=== PATIENT | male | born 1960 | race Caucasian/White ===

== ENCOUNTER 2023-02-18 06:50 | Day surgery (SDC) | payer OTHER ==
[2023-02-10 16:34] VITALS: BP 136/84
[~2023-02-18] VITALS: Ht 177.8 cm; Wt 140.9 kg
[~2023-02-18 06:50] MED LIST: DULOXETINE HCL30 MG PO; GLIMEPIRIDE4 MG PO; LOSARTAN-HCTZ1 EAC1 PO; MAGNESIUM400 MG PO; METFORMIN HCL500 MG PO; TAMSULOSIN HCL0.4 MG PO; ZOCOR20 MG PO
[2023-02-18 07:24] VITALS: BP 128/82
--- NOTE | 2023-02-18 09:47 | NUR ---
02/18/23 0947 Arlyn Orozco 0938 PT ARRIVED TO PACU. SLEEPING WITH ORAL AIRWAY IN PLACE. SAO2 98% ON 6L. PT PASSING GAS IN HIS SLEEP.
[2023-02-18 10:09] VITALS: BP 155/87
--- NOTE | 2023-02-20 20:51 | OR ---
[facility] [address], [place] [address] Signed DATE OF OPERATION: 02/18/2023 SURGEON: Kareem Horowitz MD PREOPERATIVE DIAGNOSES: 1. Personal history of colonic polyps in 2012 at age 51. 2. 4 mm polyp at 25 cm in distal sigmoid colon. 3. Minimal shallow sigmoid diverticulosis. 4. Minimal internal hemorrhoids. PROCEDURE: Colonoscopy with hot biopsy. ESTIMATED BLOOD LOSS: None. INDICATIONS: Kelly is a 63-year-old obese gentleman, asked to see me for a followup colonoscopy. He had a colonoscopy at age 51 and again at age 58 with the [facility] in [place], [place]. He said that polyps were removed on the 1st time. He was told to follow up every five years. No polyps were removed on his 2nd colonoscopy. He said he has no family history of colon cancer or polyps. He has no lower GI complaints. In the office, I gave him a pamphlet on colonoscopy. We looked at that together. He understands the nature of the test. There is risk including, but not limited to gas bloating, crampy abdominal pain, bleeding, perforation requiring surgery, and missed diagnosis. We also reviewed the written instructions for bowel prep line by line. In addition because of his large size, very heavy face, neck, chest and abdomen along with his sleep apnea and diabetes, we asked for monitored anesthesia care with propofol infusion. That worked out very well for him today. He had expressed understanding and wished to proceed. PROCEDURE NOTE: Kelly was taken into our endoscopy suite and placed in the left lateral decubitus position. He was given monitored anesthesia care with propofol infusion per our nurse academic support director. A digital rectal exam was performed. He has no external hemorrhoids. He had good sphincter tone. There were no masses. He is a large man and I could not quite reach his prostate gland. The adult colonoscope was introduced and advanced under direct visualization of the camera without difficulty. It took just a few minutes to get around into the cecum itself. It took just a little bit of abdominal compression to get the scope right down into the cecum. His prep was good. The scope was then slowly Electronically Signed By: KAREEM HOROWITZ MD 02/20/232050 PATIENT NAME: KELLY KARIMI OPERATIVE REPORT DATE OF : 62 REPORT #: [id number] PHYSICIAN: KAREEM HOROWITZ MD PCP: BIANCA STEIN MD REPORT IS CONFIDENTIAL AND NOT TO BE RELEASED WITHOUT AUTHORIZATION [facility] [address], [place] [address] Signed withdrawn. We took pictures throughout for photodocumentation. He had some very shallow diverticula in the sigmoid colon. He had just a small polyp in the distal sigmoid colon which we removed with hot biopsy forceps. He had several tiny possibly 3 mm polyps in his rectum. We just simply cauterized those. Upon retroflexion of the scope, he has some very minimal internal hemorrhoid tissue. After this, the gas was suctioned out and the colonoscope removed. Kelly tolerated his procedure quite well. RECOMMENDATIONS: I will see Kelly back in my office in 7 to 14 days to review his results. Kareem Horowitz MD ALB/MODL /[id number] cc: MD Bianca Benjamin MD Copies: KAREEM HOROWITZ MD ~ Electronically Signed By: KAREEM HOROWITZ MD 02/20/232050 PATIENT NAME: KELLY KARIMI OPERATIVE REPORT DATE OF : 62 REPORT #: [id number] PHYSICIAN: KAREEM HOROWITZ MD PCP: BIANCA STEIN MD REPORT IS CONFIDENTIAL AND NOT TO BE RELEASED WITHOUT AUTHORIZATION
--- NOTE | 2023-02-22 14:46 | PATH ---
[facility] [address] [facility] [place], [place] [address] Signed SPECIMEN(S): A DISTAL SIGMOID POLYP AT 25 CM SPECIMEN SOURCE: A. DISTAL SIGMOID POLYP AT 25 CM CLINICAL HISTORY: Colonoscopy. History of polyps FINAL PATHOLOGIC DIAGNOSIS: Distal sigmoid polyp, at 25 cm: - Hyperplastic polyp (one fragment). JVR:neema MICROSCOPIC EXAMINATION: Histologic sections of all submitted blocks are examined by light microscopy. These findings, together with the gross examination, support the pathologic diagnosis. GROSS DESCRIPTION: The specimen, labeled and designated "Radha, distal sigmoid polyp at 25 cm," is received in formalin and consists of one suarez soft tissue fragment, 0.2 cm. Entirely submitted in (A1). VB (under the direct supervision of a pathologist) The Gross Description was prepared using a voice recognition system. The report was reviewed for accuracy; however, sound-alike word errors, addition and/or deletions may occur. If there is any question about this report, please contact Client Services. PERFORMING LABORATORY: Technical component was performed by [facility], [address] [place] [id number] (CLIA# [id number]). Professional interpretation was performed by [facility], [address] [place] [id number] (CLIA#: [id number]). Diagnostician: Prasanna Melo MD Pathologist Electronically Signed 02/22/2023 Copies: PATIENT NAME: KELLY KARIMI PATHOLOGY DATE OF : 62 REPORT #: [id number] PHYSICIAN: KARON PATHOLOGY PCP: KELBY STEIN MD REPORT IS CONFIDENTIAL AND NOT TO BE RELEASED WITHOUT AUTHORIZATION [address] [address] Signed ~ PATIENT NAME: KELLY KARIMI PATHOLOGY DATE OF : 62 REPORT #: [id number] PHYSICIAN: KARON SMITH PCP: KELBY STEIN MD REPORT IS CONFIDENTIAL AND NOT TO BE RELEASED WITHOUT AUTHORIZATION
== END 2023-02-18 10:30 | disposition home or self-care (01) ==
LOC: OPS 06:50 → DS 06:50 → OPS 08:15 → DS 08:15 → OPS 10:30
PROVIDERS: ATTEND Colon & Rectal Surgery
PROC: 0DBN8ZX Excision of Sigmoid Colon, Via Natural or Artificial Opening Endoscopic, Diagnostic (ICD-10-PCS; principal; 2023-02-18 08:15)
DX: K63.5 Polyp of colon (principal); K57.30 Diverticulosis of large intestine without perforation or abscess without bleeding; K64.8 Other hemorrhoids; E66.9 Obesity, unspecified; E11.42 Type 2 diabetes mellitus with diabetic polyneuropathy; G47.33 Obstructive sleep apnea (adult) (pediatric); I10 Essential (primary) hypertension; M19.90 Unspecified osteoarthritis, unspecified site; E78.5 Hyperlipidemia, unspecified; Z79.84 Long term (current) use of oral hypoglycemic drugs; Z86.010 Personal history of colon polyps; Z99.89 Dependence on other enabling machines and devices
CPT/HCPCS: 00811; J2001; J2704; J3010; J7121

== ENCOUNTER 2023-03-21 16:04 | Emergency (ER) | payer OTHER ==
[~2023-03-21] VITALS: Ht 177.8 cm; Wt 141.0 kg
[2023-03-21] MEDS ORDERED: HYDROCODON-ACE1 EA10 PO (20:38)
[2023-03-21 21:20] VITALS: BP 157/89
== END 2023-03-21 21:21 | disposition home or self-care (01) ==
LOC: ED 16:04
DX: M19.012 Primary osteoarthritis, left shoulder (principal); I10 Essential (primary) hypertension; E11.9 Type 2 diabetes mellitus without complications; E78.5 Hyperlipidemia, unspecified; X50.0XXA Overexertion from strenuous movement or load, initial encounter; Z79.899 Other long term (current) drug therapy; Z79.84 Long term (current) use of oral hypoglycemic drugs
CPT/HCPCS: 73030; A9270; J1885